=== PATIENT | male | born 2000 | race Caucasian/White ===

== ENCOUNTER 2018-10-05 21:23 | Emergency (ER) | payer MEDICAID ==
[~2018-10-05] VITALS: Ht 193 cm; Wt 135.2 kg
[2018-10-05 21:30] VITALS: Ht 193 cm; Wt 135.2 kg
[2018-10-05 22:25] VITALS: BP 153/79
== END 2018-10-05 22:25 | disposition home or self-care (01) ==
LOC: ED 21:23
DX: H60.92 Unspecified otitis externa, left ear (principal); J45.909 Unspecified asthma, uncomplicated